=== PATIENT | male | born 1940 ===

== ENCOUNTER 2022-02-12 10:09 | Day surgery (SDC) | payer OTHER ==
[~2022-02-12] VITALS: Ht 172.7 cm; Wt 91.7 kg
--- NOTE | 2022-02-12 10:47 | NUR ---
02/12/22 1047 Carly Stacy TETRACAINE GIVEN AT 1038 INTO RIGHT EYE PLEDGET GIVEN INTO RIGHT EYE AT 1040
== END 2022-02-12 12:10 | disposition home or self-care (01) ==
LOC: ORSCSDS 10:09
PROVIDERS: Ophthalmology
PROC: 08DJ3ZZ Extraction of Right Lens, Percutaneous Approach (ICD-10-PCS; principal; 2022-02-12 11:30)
DX: H25.11 Age-related nuclear cataract, right eye (principal); I48.91 Unspecified atrial fibrillation; G47.33 Obstructive sleep apnea (adult) (pediatric); E66.9 Obesity, unspecified; Z68.30 Body mass index [BMI] 30.0-30.9, adult
CPT/HCPCS: J2001; J2250; J3010; J3301; J7040; V2632

== ENCOUNTER 2022-02-26 10:05 | Day surgery (SDC) | payer OTHER ==
[~2022-02-26] VITALS: Ht 172.7 cm; Wt 93.0 kg
--- NOTE | 2022-02-26 10:34 | NUR ---
02/26/22 1034 Francia Tate AT 1029 PLEET 1023
== END 2022-02-26 12:12 | disposition home or self-care (01) ==
LOC: ORSCSDS 10:05
PROVIDERS: Ophthalmology
PROC: 08DK3ZZ Extraction of Left Lens, Percutaneous Approach (ICD-10-PCS; principal; 2022-02-26 11:30)
DX: H25.12 Age-related nuclear cataract, left eye (principal); Z96.1 Presence of intraocular lens; G47.33 Obstructive sleep apnea (adult) (pediatric); E66.9 Obesity, unspecified; Z68.31 Body mass index [BMI] 31.0-31.9, adult; I48.91 Unspecified atrial fibrillation; Z79.899 Other long term (current) drug therapy
CPT/HCPCS: J2001; J2250; J3010; J3301; J7120; V2632